=== PATIENT | male | born 1965 | race Caucasian/White ===

== ENCOUNTER 2023-09-05 09:02 | Emergency (ER) | payer MEDICARE ==
[~2023-09-05] VITALS: Ht 177.8 cm; Wt 93.0 kg
[2023-09-05 09:02] VITALS: BP 151/80; PULSE 46; RESP 18; TEMP 98.4; O2SAT 96
[2023-09-05 09:31] LABS: +ADD MANUAL DIFF(NO CHRG) NO; BASOPHIL % 0.2 % (0.0-0.2); EOSINOPHIL # 0.1 10^3/uL (0.0-0.2); HEMATOCRIT(ML) 45.7 % (37.0-53.0); HEMOGLOBIN 15.1 g/dL (13.9-16.3); LYMPHOCYTES # 1.34 10^3/uL1 (1.0-4.8); LYMPHOCYTES % 10.3 % (24.0-44.0); MEAN CORP HGB 30.4 pg (26-34); MEAN CORP VOLUME 92.1 fL (78-100); MONOCYTES # 0.8 10^3/uL (0.3-0.8); MONOCYTES % 6.2 % (5.0-12.0); NEUTROPHIL # 10.7 10^3/uL (1.8-7.7); NEUTROPHILS % 82.1 % (41.0-85.0); PLATELET COUNT 185 10^3/uL (150-400); RED BLOOD CELL 4.96 10^6/uL (4.50-5.90); RED CELL DISTRIBUTION WIDTH 12.4 % (11.5-14.5)
[2023-09-05 09:43] LABS: INR 1.1; PROTHROMBIN PROTIME 11.2 SEC (9.7-11.6)
[2023-09-05 09:47] VITALS: BP 134/77; PULSE 46; RESP 18; TEMP 98.4; O2SAT 96
[2023-09-05 10:00] LABS: ALBUMIN(ML) 3.6 g/dL (3.4-5.0); ALBUMIN/GLOBULIN RATIO 0.923; BUN/CREATININE RATIO 22.33 (10.0-20.0); CALCIUM 9.1 mg/dL (8.4-10.5); CARBON DIOXIDE 25.4 mmol/L (20.0-32); CREATINE KINASE MB 6.8 ng/mL (0.5-3.6); CREATININE SERUM 1.03 mg/dL (0.59-1.40); POTASSIUM 4.4 mmol/L (3.6-5.2)
[2023-09-05 10:17] VITALS: BP 121/77; PULSE 44; RESP 18; TEMP 98.4; O2SAT 96
[2023-09-05 10:47] VITALS: BP 121/74; PULSE 49; RESP 18; TEMP 98.4; O2SAT 96
[2023-09-05] MEDS ORDERED: SUBLIMAZE 100MCG/2ML ONE (10:57)
[2023-09-05] MEDS: SUBLIMAZE 100MCG/2ML IV STA (10:57)
== END 2023-09-05 11:15 | disposition short-term general hospital (02) ==
LOC: ER 09:02
DX: S22.41XA Multiple fractures of ribs, right side, initial encounter for closed fracture (principal); S00.81XA Abrasion of other part of head, initial encounter; S40.021A Contusion of right upper arm, initial encounter; M62.82 Rhabdomyolysis; K74.60 Unspecified cirrhosis of liver; V80.010A Animal-rider injured by fall from or being thrown from horse in noncollision accident, initial encounter; Y93.52 Activity, horseback riding; Y92.89 Other specified places as the place of occurrence of the external cause; Y99.8 Other external cause status
CPT/HCPCS: 99291; 70450; 96374; 71045; 99292; 71260; 72125; 74177; 73060; 80053; 85025; 36415; 84484; 82553; 82550; 85610; 85730; 86900; 93005; G0390; J3010; Q9965